=== PATIENT | male | born 1960 | race Caucasian/White ===

== ENCOUNTER 2016-10-05 06:52 | Day surgery (SDC) | payer MEDICAID ==
[2016-10-01 11:42] VITALS: BMI 25.8
[2016-10-05] MEDS ORDERED: Lidocaine 1% Inj (20ml) ONE (07:27)
[2016-10-05] MEDS ORDERED: Bupivacaine HCl 0.25% PF (10 ml) Inj ONE ×2 (07:27→07:48)
[2016-10-05] MEDS ORDERED: Propofol 10 mg/ml Inj (20 ML) ONE (07:43)
[2016-10-05] MEDS ORDERED: Midazolam 2 MG/2 ML VIAL ONE (07:43)
[2016-10-05] MEDS ORDERED: Bupivacaine HCl 0.5% PF (10 ml) Inj ONE (07:47)
[2016-10-05] MEDS ORDERED: HYDROmorphone 0.5 mg/0.5 ml ISec IVP PRN (09:26)
[2016-10-05] MEDS ORDERED: Oxycodone/Acetaminophen 5/325 mg Tab PO PRN (09:27)
[2016-10-05] MEDS ORDERED: Lactated Ringer's 1,000 ML IV SCH (09:30)
--- NOTE | 2016-10-05 09:37 | OP ---
PROCEDURE DATE: 10/05/2016 PREOPERATIVE DIAGNOSIS: Right scapula mass. POSTOPERATIVE DIAGNOSIS: Right scapula mass. PROCEDURE PERFORMED: Wide and deep excision of right scapula mass with adjacent tissue transfer clos ure. SURGEON: Jose Alberto Myles MD ANESTHESIA: General. ESTIMATED BLOOD LOSS: 20 mL. POSTOPERATIVE CONDITION: Stable. PROCEDURE: The patient taken to the operating room and placed in the prone position. The right scap ular area and back were prepped and draped and the area was anesthetized with 0.25% Marcaine and 1% l idocaine. An elliptical incision was made surrounding the mass and the mass was dissected free into the back fascia and removed. Bleeding was controlled using the Bovie. A chest wall blood vessel was repaired. The wound was irrigated with copious amounts of saline solution. Generous tissue flaps w ere raised using the Bovie and an adjacent tissue transfer closure was performed using multiple layer s of Monocryl, subcuticular Monocryl, and skin clips. The patient tolerated the procedure well, retu rned to recovery room in stable condition. Jose Alberto Myles MD cc: [id number] TT: 10/05/2016 09:36:10 en
[2016-10-05 10:37] VITALS: RESP 16
[2016-10-05 11:06] VITALS: BP 90/67; PULSE 71; TEMP 97.5; O2SAT 99
== END 2016-10-05 11:05 | disposition home or self-care (01) ==
LOC: C.SDS 06:52
PROVIDERS: ATTEND Surgery
DX: L72.8 Other follicular cysts of the skin and subcutaneous tissue (principal)
CPT/HCPCS: 11403; 88307; J2250; J2405; J2704; J3010